=== PATIENT | male | born 1955 | race Caucasian/White ===

== ENCOUNTER 2021-01-11 14:57 | Inpatient (IN) | payer OTHER, MEDICARE ==
[2021-01-11] MEDS ORDERED: Ibuprofen 800 MG Tab PO ONE (16:33)
[2021-01-11] MEDS ORDERED: Acetaminophen 500 MG Tab PO ONE (16:33)
[2021-01-11] MEDS ORDERED: Ondansetron 4 MG Tab.DIS PO ONE (16:33)
--- NOTE | 2021-01-11 16:33 | EDM.PDOC ---
ED HPI GENERAL MEDICAL PROBLEM - General Chief Complaint: Respiratory Problem Stated Complaint: CHILLS/VOMITTING/TASTE Time Seen by Provider: 01/11/21 16:05 Source of Information: Reports: Patient, RN Notes Reviewed History Limitations: Reports: No Limitations - History of Present Illness INITIAL COMMENTS - FREE TEXT/NARRATIVE: Jemal presents today for complaints of nausea, vomiting, diarrhea, general malaise and body aches since 01/05/2021. He reports he feels weak and run down. he reports loss of sense of taste and smell. He reports decreased appetite. He denies known COVID19 exposure, however he is concerned about being positive. He is not sure of any tick/insect bite exposure. He is retired, lives in [facility]. He report he was immunized for COVID19. - Related Data Allergies Allergy/AdvReac Type Severity Reaction Status Date / Time lisinopril AdvReac Cough Verified 01/11/21 15:21 Home Meds: Home Meds Chlorthalidone 0.5 tab PO DAILY 01/11/21 [History] Finasteride [Proscar] 1 tab PO DAILY 01/11/21 [History] Losartan [Cozaar] 1 tab PO DAILY 01/11/21 [History] Sildenafil Citrate [Viagra] 1 tab PO Q12HR PRN 01/11/21 [History] amLODIPine Besylate [Amlodipine Besylate] 1 tab PO DAILY 01/11/21 [History] Past Medical History Cardiovascular History: Reports: Hypertension Social & Family History - Tobacco Use Tobacco Use Status *Q: Never Tobacco User ED ROS GENERAL - Review of Systems Review Of Systems: See Below Constitutional: Reports: Chills, Malaise, Weakness, Fatigue, Decreased Appetite. Denies: Fever, Night Sweats, Diaphoresis, Weight Loss HEENT: Reports: Rhinitis, Other (watery and red eyes). Denies: Dental Pain, Ear Discharge, Ear Pain, Eye Discharge, Eye Pain, Hearing Loss, Nosebleed, Nose Pain, Throat Pain, Throat Swelling, Vertigo, Vision Change Respiratory: Reports: Cough. Denies: Shortness of Breath, Wheezing, Pleuritic Chest Pain, Sputum, Hemoptysis Cardiovascular: Reports: No Symptoms Endocrine: Reports: No Symptoms GI/Abdominal: Reports: Diarrhea, Decreased Appetite, Nausea, Vomiting. Denies: Abdominal Pain, Black Stool, Bloody Stool, Constipation, Difficulty Swallowing, Distension, Melena : Reports: No Symptoms Musculoskeletal: Reports: Other (body aches) Skin: Reports: No Symptoms Neurological: Reports: No Symptoms Psychiatric: Reports: No Symptoms Hematologic/Lymphatic: Reports: No Symptoms Immunologic: Reports: No Symptoms ED EXAM, GENERAL - Physical Exam Exam: See Below Exam Limited By: No Limitations General Appearance: Alert, WD/WN, Mild Distress Eye Exam: Bilateral Eye: Conjunctival Injection, PERRL Ears: Normal External Exam, Normal Canal, Hearing Grossly Normal, Normal TMs Ear Exam: Bilateral Ear: TM normal Nose: Normal Mucosa, Clear Rhinorrhea. No: No Blood, Nasal Tenderness, Nasal Deformity, Nasal Swelling, Nasal Flaring Throat/Mouth: Normal Inspection, Normal Lips, Normal Teeth, Normal Gums, Normal Oropharynx, Normal Voice, No Airway Compromise Head: Atraumatic, Normocephalic Neck: Normal Inspection, Supple, Non-Tender, Full Range of Motion. No: Lymphadenopathy (R), Lymphadenopathy (L) Respiratory/Chest: No Respiratory Distress, Lungs Clear, Normal Breath Sounds, No Accessory Muscle Use, Chest Non-Tender. No: Crackles, Rales, Rhonchi, Wheezing, Stridor, Retractions Cardiovascular: Normal Peripheral Pulses, Regular Rate, Rhythm, No Edema, No Gallop, No Murmur, No Rub Peripheral Pulses: 4+: Radial (L), Radial (R), Dorsalis Pedis (L), Dorsalis Pedis (R) GI/Abdominal: Normal Bowel Sounds, Soft, Non-Tender, No Organomegaly, No Distention, No Mass. No: Guarding, Rigid, Rebound, Tender (Male) Exam: Deferred Rectal (Males) Exam: Deferred Back Exam: Normal Inspection, Full Range of Motion. No: CVA Tenderness (R), CVA Tenderness (L) Extremities: Normal Inspection, Normal Range of Motion, No Pedal Edema, Normal Capillary Refill Neurological: Alert, Oriented, CN II-XII Intact, Normal Cognition, Normal Gait, Normal Reflexes, No Motor/Sensory Deficits Psychiatric: Normal Affect, Normal Mood Skin Exam: Intact, No Rash, Diaphoretic, Increased Warmth Lymphatic: No Adenopathy Course - Vital Signs Last Recorded V/S: Last Vital Signs Temp 35.5 C L 01/11/21 22:44 Pulse 79 01/11/21 22:44 Resp 16 01/11/21 22:44 BP 99/49 L 01/11/21 22:44 Pulse Ox 99 01/11/21 22:44 - Orders/Labs/Meds Orders: Active Orders 24 hr Category Date Time Status Chest 2V [CR] Stat Exams 01/11/21 17:34 Taken CULTURE BLOOD [BC] Urgent Lab 01/11/21 17:34 Received CULTURE BLOOD [BC] Urgent Lab 01/11/21 17:50 Received Blood Culture x2 Reflex Set [OM.PC] Urgent Oth 01/11/21 17:34 Ordered Medication Orders Acetaminophen (Acetaminophen 325 Mg Tab) 650 mg PO Q4H PRN PRN Reason: Pain (Mild 1-3)/fever Albuterol (Albuterol 0.083% 2.5 Mg/3 Ml Neb Soln) 2.5 mg NEB Q4H PRN PRN Reason: Shortness Of Breath/wheezing Amlodipine Besylate (Amlodipine 5 Mg Tab) 5 mg PO DAILY NANO Finasteride (Finasteride 5 Mg Tab) 5 mg PO DAILY [facility] Doxycycline Hyclate 100 mg/ (Sodium Chloride) 100 mls @ 100 mls/hr IV Q12H NANO Lactated Ringer's (Ringers, Lactated) 1,000 mls @ 125 mls/hr IV ASDIRECTED NANO Last Admin: 01/11/21 21:28 Dose: 125 mls/hr Documented by: JEAN CLAUDE Losartan Potassium (Losartan 50 Mg Tab) 100 mg PO DAILY NANO Ondansetron HCl (Ondansetron 4 Mg/2 Ml Sdv) 4 mg IV Q4H PRN PRN Reason: Nausea/Vomiting Polyethylene Glycol (Polyethylene Glycol 3350 Powder 17 Gm Packet) 17 gm PO DAILY PRN PRN Reason: Constipation Sodium Chloride (Sodium Chloride 0.9% 10 Ml Syringe) 10 ml FLUSH ASDIRECTED PRN PRN Reason: Keep Vein Open Labs: Laboratory Tests 01/11/21 01/11/21 01/11/21 Range/Units 00:08 16:23 16:45 WBC 2.9 L (4.5-11.0) K/uL RBC 4.79 (4.30-5.90) M/uL Hgb 13.7 (12.0-15.0) g/dL Hct 38.9 L (40.0-54.0) % MCV 81 (80-98) fL MCH 29 (27-31) pg MCHC 35 (32-36) % Plt Count 53 L (150-400) K/uL Neut % (Auto) 79.3 H (36-66) % Lymph % (Auto) 11.0 L (24-44) % [place] % (Auto) 9.0 H (2-6) % Eos % (Auto) 0.0 L (2-4) % Baso % (Auto) 0.7 (0-1) % Sodium (140-148) mmol/L Potassium (3.6-5.2) mmol/L Chloride (100-108) mmol/L Carbon Dioxide (21-32) mmol/L Anion Gap (5.0-14.0) mmol/L BUN (7-18) mg/dL Creatinine (0.8-1.3) mg/dL Est Cr Clr Drug Dosing mL/min Estimated GFR (MDRD) (>60) Glucose (74-106) mg/dL Lactic Acid 1.7 (0.4-2.0) mmol/L Calcium (8.5-10.1) mg/dL Total Bilirubin (0.2-1.0) mg/dL AST (15-37) U/L ALT (12-78) U/L Alkaline Phosphatase (46-116) U/L Total Protein (6.4-8.2) g/dL Albumin (3.4-5.0) g/dL Globulin (2.3-3.5) g/dL Albumin/Globulin Ratio (1.2-2.2) SARS-CoV-2 RNA (TARI) Negative (NEGATIVE) 01/11/21 Range/Units 16:45 WBC (4.5-11.0) K/uL RBC (4.30-5.90) M/uL Hgb (12.0-15.0) g/dL Hct (40.0-54.0) % MCV (80-98) fL MCH (27-31) pg MCHC (32-36) % Plt Count (150-400) K/uL Neut % (Auto) (36-66) % Lymph % (Auto) (24-44) % [place] % (Auto) (2-6) % Eos % (Auto) (2-4) % Baso % (Auto) (0-1) % Sodium 132 L (140-148) mmol/L Potassium 3.0 L (3.6-5.2) mmol/L Chloride 93 L (100-108) mmol/L Carbon Dioxide 25 (21-32) mmol/L Anion Gap 17.0 H (5.0-14.0) mmol/L BUN 46 H (7-18) mg/dL Creatinine 2.3 H (0.8-1.3) mg/dL Est Cr Clr Drug Dosing 31.79 mL/min Estimated GFR (MDRD) 29 L (>60) Glucose 144 H (74-106) mg/dL Lactic Acid (0.4-2.0) mmol/L Calcium 8.1 L (8.5-10.1) mg/dL Total Bilirubin 0.9 (0.2-1.0) mg/dL AST 108 H (15-37) U/L ALT 67 (12-78) U/L Alkaline Phosphatase 52 (46-116) U/L Total Protein 6.5 (6.4-8.2) g/dL Albumin 2.9 L (3.4-5.0) g/dL Globulin 3.6 H (2.3-3.5) g/dL Albumin/Globulin Ratio 0.8 L (1.2-2.2) SARS-CoV-2 RNA (TARI) (NEGATIVE) Noted leukopenia, neutrophilia, thrombocytopenia, hypokalemia, EDGARDO, hyponatremia, discussed with Dr. Moser, we will treat patient for anaplasmosis. IV normal saline 1L bolus, doxycycline 100mg IV. Patient will be admitted per Dr. Moser. Meds: Medications Generic Name Dose Route Start Last Admin Trade Name Freq PRN Reason Stop Dose Admin Acetaminophen 650 mg 01/11/21 19:47 Acetaminophen 325 Mg Tab PO Q4H PRN Pain (Mild 1-3)/fever Albuterol 2.5 mg 01/11/21 19:47 Albuterol 0.083% 2.5 Mg/3 Ml Neb Soln NEB Q4H PRN Shortness Of Breath/wheezing Amlodipine Besylate 5 mg 01/12/21 09:00 Amlodipine 5 Mg Tab PO DAILY NANO Finasteride 5 mg 01/12/21 09:00 Finasteride 5 Mg Tab PO DAILY NANO Doxycycline Hyclate 100 mg/ 100 mls @ 100 mls/hr 01/12/21 09:00 Sodium Chloride IV Q12H NANO Lactated Ringer's 1,000 mls @ 125 mls/hr 01/11/21 19:47 01/11/21 21:28 Ringers, Lactated IV 125 mls/hr ASDIRECTED NANO Administration Losartan Potassium 100 mg 01/12/21 09:00 Losartan 50 Mg Tab PO DAILY NANO Ondansetron HCl 4 mg 01/11/21 19:47 Ondansetron 4 Mg/2 Ml Sdv IV Q4H PRN Nausea/Vomiting Polyethylene Glycol 17 gm 01/11/21 19:47 Polyethylene Glycol 3350 Powder 17 Gm Packet PO DAILY PRN Constipation Sodium Chloride 10 ml 01/11/21 19:47 Sodium Chloride 0.9% 10 Ml Syringe FLUSH ASDIRECTED PRN Keep Vein Open Discontinued Medications Generic Name Dose Route Start Last Admin Trade Name Freq PRN Reason Stop Dose Admin Acetaminophen 1,000 mg 01/11/21 16:33 01/11/21 16:51 Acetaminophen 500 Mg Tab PO 01/11/21 16:34 1,000 mg ONETIME ONE Administration Doxycycline Hyclate 100 mg/ 100 mls @ 100 mls/hr 01/11/21 17:34 01/11/21 18:20 Sodium Chloride IV 01/11/21 18:33 100 mls/hr ONETIME ONE Administration Sodium Chloride 1,000 mls @ 999 mls/hr 01/11/21 17:35 01/11/21 18:19 Normal Saline IV 01/11/21 18:35 999 mls/hr .BOLUS ONE Administration Lactated Ringer's 1,000 mls @ 999 mls/hr 01/11/21 18:35 01/11/21 20:28 Ringers, Lactated IV 01/11/21 19:36 999 mls/hr ASDIRECTED NANO Administration Ibuprofen 800 mg 01/11/21 16:33 01/11/21 16:51 Ibuprofen 800 Mg Tab PO 01/11/21 16:34 800 mg ONETIME ONE Administration Ondansetron HCl 4 mg 01/11/21 16:33 01/11/21 16:51 Ondansetron 4 Mg Tab.Dis PO 01/11/21 16:34 4 mg ONETIME ONE Administration Potassium Chloride 40 meq 01/11/21 18:06 01/11/21 19:34 Potassium Chloride 20 Meq Tab.Er PO 01/11/21 18:07 40 meq ONETIME ONE Administration Potassium Chloride 40 meq 01/11/21 22:00 01/11/21 22:45 Potassium Chloride 20 Meq Tab.Er PO 01/11/21 22:01 40 meq ONETIME ONE Administration Sodium Chloride 10 ml 01/11/21 17:34 Sodium Chloride 0.9% 10 Ml Syringe FLUSH ASDIRECTED PRN Keep Vein Open Patient in agreement with plan. - Radiology Interpretation Free Text/Narrative:: Chest x-ray wet read, reviewed, no acute findings noted. - Re-Assessments/Exams Free Text/Narrative Re-Assessment/Exam: 01/11/21 18:22 Patient reports he is doing okay, denies any worsening of symptoms. Alert and o riented x 3. Departure - Departure Time of Disposition: 19:00 Disposition: DC/Tfer to [facility] Condition: Fair Clinical Impression: EDGARDO (acute kidney injury), Hypokalemia, Probable sepsis - Discharge Information Sepsis Event Note (ED) - Evaluation Sepsis Screening Result: No Definite Risk - Focused Exam Vital Signs: Vital Signs Temp Pulse Resp BP Pulse Ox 01/11/21 17:36 107 H 114/72 96 01/11/21 17:03 108 H 117/75 96 01/11/21 16:08 106 H 119/76 96 01/11/21 15:34 36.8 C 113 H 16 132/85 100 01/11/21 15:12 36.8 C 113 H 16 132/85 132 H - My Orders Last 24 Hours: My Active Orders 01/11/21 17:34 Chest 2V [CR] Stat CULTURE BLOOD [BC] Urgent Blood Culture x2 Reflex Set [OM.PC] Urgent 01/11/21 17:50 CULTURE BLOOD [BC] Urgent - Assessment/Plan Last 24 Hours: My Active Orders 01/11/21 17:34 Chest 2V [CR] Stat CULTURE BLOOD [BC] Urgent Blood Culture x2 Reflex Set [OM.PC] Urgent 01/11/21 17:50 CULTURE BLOOD [BC] Urgent Assessment:: Inpatient admission for hypokalemia, EDGARDO, probable anaplasmosis. Plan: Patient admitted per Dr. Moser.
[2021-01-11] MEDS ORDERED: Doxycycline 100 MG in Sodium Chloride 0.9% 100 ML IV ONE (17:34)
[2021-01-11] MEDS ORDERED: Sodium Chloride 0.9% 10 ML Syringe FLUSH PRN ×2 (17:34→19:47)
[2021-01-11] MEDS ORDERED: Sodium Chloride 0.9% 1,000 ML IV ONE (17:35)
[2021-01-11] MEDS ORDERED: Potassium Chloride 20 MEQ Tab.ER PO ONE ×2 (18:06→22:00)
--- NOTE | 2021-01-11 18:18 | PCM.HP.2 ---
H&P History of Present Illness - General Date of Service: 01/11/21 Admit Problem/Dx: Admission Diagnosis/Problem Admission Diagnosis/Problem Human anaplasmosis Source of Information: Patient, Provider, RN Notes Reviewed History Limitations: Reports: No Limitations - History of Present Illness Initial Comments - Free Text/Narative: Mr. Stout is a 65-year-old gentleman who was admitted through the emergency department with fever, myalgias, headache, and weakness, secondary to probable anaplasmosis. He has not felt well over the past 6 days and has noted progressive symptoms during that period of time. [place]. He denies any memorable tick bites over the past few weeks. Because of progressive symptoms he presented to the emergency department today. Testing for COVID-19 is negative. White blood cell count was low as was his platelet count, elevation of transaminase levels was noted. He does have a history of hypertension and reports also a history of some chronic kidney disease. [place] and is unsure of his baseline creatinine level. On evaluation in the emergency department his creatinine is elevated at 2.3 with a GFR of 29. - Related Data Allergies/Adverse Reactions: Allergies Allergy/AdvReac Type Severity Reaction Status Date / Time lisinopril AdvReac Cough Verified 01/11/21 15:21 Home Medications: Home Meds Chlorthalidone 0.5 tab PO DAILY 01/11/21 [History] Finasteride [Proscar] 1 tab PO DAILY 01/11/21 [History] Losartan [Cozaar] 1 tab PO DAILY 01/11/21 [History] Sildenafil Citrate [Viagra] 1 tab PO Q12HR PRN 01/11/21 [History] amLODIPine Besylate [Amlodipine Besylate] 1 tab PO DAILY 01/11/21 [History] Past Medical History Cardiovascular History: Reports: Hypertension Social & Family History - Tobacco Use Tobacco Use Status *Q: Never Tobacco User H&P Review of Systems - Review of Systems: Review Of Systems: See Below General: Reports: Fever, Chills, Malaise, Weakness, Fatigue, Diaphoresis HEENT: Reports: Headaches. Denies: Ear Pain, Eye Pain, Rhinitis, Sore Throat, Visual Changes Pulmonary: Reports: Cough. Denies: Shortness of Breath, Wheezing, Pleuritic Chest Pain, Sputum, Hemoptysis Cardiovascular: Reports: No Symptoms Gastrointestinal: Reports: Diarrhea, Nausea. Denies: Constipation, Difficulty Swallowing, Distension, Hematemesis, Hematochezia, Melena, Vomiting Genitourinary: Reports: No Symptoms Musculoskeletal: Reports: Muscle Pain, Muscle Stiffness Skin: Reports: No Symptoms Psychiatric: Reports: No Symptoms Neurological: Reports: Headache. Denies: Confusion, Dizziness, Numbness, Paresthesia, Pre-Existing Deficit, Trouble Speaking, Difficulty Walking, Weakness Hematologic/Lymphatic: Reports: No Symptoms Immunologic: Reports: No Symptoms Exam - Exam Exam: See Below - Vital Signs Vital Signs: Last Vital Signs Temp 98.2 F 01/11/21 15:34 Pulse 107 H 01/11/21 17:36 Resp 16 01/11/21 15:34 BP 114/72 01/11/21 17:36 Pulse Ox 96 01/11/21 17:36 Weight: 159 lb - Exam Quality Assessment: DVT Prophylaxis General: Alert, Oriented, Cooperative, Moderate Distress HEENT: Conjunctiva Clear, Hearing Intact, Normal Nasal Septum, Posterior Pharynx Clear, Pupils Equal. No: Mucosa Moist & [place] Neck: Supple, Trachea Midline, +2 Carotid Pulse wo Bruit Lungs: Clear to Auscultation, Normal Respiratory Effort Cardiovascular: Regular Rate, Regular Rhythm, Normal S1, Normal S2. No: Systolic Murmur, Diastolic Murmur GI/Abdominal Exam: Soft, Non-Tender, No Organomegaly, No Distention Back Exam: Normal Inspection, Full Range of Motion Extremities: Non-Tender, No Pedal Edema Skin: Warm, Dry, Intact Neurological: Cranial Nerves Intact, Strength Equal Bilateral, Normal Speech, Normal Tone, Sensation Intact. No: Focal Deficit Neuro Extensive - Mental Status: Alert, Oriented x3, Normal Mood/Affect, Normal Cognition, Memory Intact - Patient Data Lab Results Last 24 hrs: Laboratory Results - last 24 hr 01/11/21 01/11/21 01/11/21 Range/Units 16:23 16:45 16:45 WBC 2.9 L (4.5-11.0) K/uL RBC 4.79 (4.30-5.90) M/uL Hgb 13.7 (12.0-15.0) g/dL Hct 38.9 L (40.0-54.0) % MCV 81 (80-98) fL MCH 29 (27-31) pg MCHC 35 (32-36) % Plt Count 53 L (150-400) K/uL Neut % (Auto) 79.3 H (36-66) % Lymph % (Auto) 11.0 L (24-44) % [place] % (Auto) 9.0 H (2-6) % Eos % (Auto) 0.0 L (2-4) % Baso % (Auto) 0.7 (0-1) % Sodium 132 L (140-148) mmol/L Potassium 3.0 L (3.6-5.2) mmol/L Chloride 93 L (100-108) mmol/L Carbon Dioxide 25 (21-32) mmol/L Anion Gap 17.0 H (5.0-14.0) mmol/L BUN 46 H (7-18) mg/dL Creatinine 2.3 H (0.8-1.3) mg/dL Est Cr Clr Drug Dosing 31.79 mL/min Estimated GFR (MDRD) 29 L (>60) Glucose 144 H (74-106) mg/dL Calcium 8.1 L (8.5-10.1) mg/dL Total Bilirubin 0.9 (0.2-1.0) mg/dL AST 108 H (15-37) U/L ALT 67 (12-78) U/L Alkaline Phosphatase 52 (46-116) U/L Total Protein 6.5 (6.4-8.2) g/dL Albumin 2.9 L (3.4-5.0) g/dL Globulin 3.6 H (2.3-3.5) g/dL Albumin/Globulin Ratio 0.8 L (1.2-2.2) SARS-CoV-2 RNA (TARI) Negative (NEGATIVE) Result Diagrams: 01/11/21 16:45 01/11/21 16:45 Sepsis Event Note - Evaluation Sepsis Screening Result: No Definite Risk - Focused Exam Vital Signs: Vital Signs Temp Pulse Resp BP Pulse Ox 01/11/21 17:36 107 H 114/72 96 01/11/21 17:03 108 H 117/75 96 01/11/21 16:08 106 H 119/76 96 01/11/21 15:34 98.2 F 113 H 16 132/85 100 01/11/21 15:12 98.2 F 113 H 16 132/85 132 H *Q Meaningful Use (ADM) - VTE Risk Assess *Q Each Risk Factor Represents 1 Point: None Total Score 1 Point Risk Factors: 0 Each Risk Factor Represents 2 Points: Age 60 - 74 Years Total Score 2 Point Risk Factors: 2 Each Risk Factor Represents 3 Points: None Total Score 3 Point Risk Factors: 0 Each Risk Factor Represents 5 Points: None Total Score 5 Point Risk Factors: 0 Venous Thromboembolism Risk Factor Score *Q: 2 Problem List Initiated/Reviewed/Updated: Yes Orders Last 24hrs: Active Orders 24 hr Category Date Time Status Patient Status Manage Transfer [TRANSFER] Routine ADT 01/11/21 18:07 Ordered Chest 2V [CR] Stat Exams 01/11/21 17:34 Taken CULTURE BLOOD [BC] Urgent Lab 01/11/21 17:34 Received CULTURE BLOOD [BC] Urgent Lab 01/11/21 17:50 Received UA W/MICROSCOPIC [URIN] Stat Lab 01/11/21 17:35 Ordered Doxycycline [Vibramycin] 100 mg Med 01/11/21 17:34 Active Sodium Chloride 0.9% [Normal Saline] 100 ml IV ONETIME Lactated Ringers [Ringers, Lactated] 1,000 ml Med 01/11/21 18:35 Ordered IV ASDIRECTED Potassium Chloride [Klor-Con M20] Med 01/11/21 18:06 Once 40 meq PO ONETIME ONE Sodium Chloride 0.9% [Normal Saline] 1,000 ml Med 01/11/21 17:35 Active IV .BOLUS Sodium Chloride 0.9% [Saline Flush] Med 01/11/21 17:34 Active 10 ml FLUSH ASDIRECTED PRN Blood Culture x2 Reflex Set [OM.PC] Urgent Oth 01/11/21 17:34 Ordered Saline Lock Insert [OM.PC] Routine Oth 01/11/21 17:34 Ordered Resuscitation Status Routine Resus Stat 01/11/21 18:10 Ordered Medication Orders Doxycycline Hyclate 100 mg/ (Sodium Chloride) 100 mls @ 100 mls/hr IV ONETIME ONE Stop: 01/11/21 18:33 Sodium Chloride (Normal Saline) 1,000 mls @ 999 mls/hr IV .BOLUS ONE Stop: 01/11/21 18:35 Lactated Ringer's (Ringers, Lactated) 1,000 mls @ 999 mls/hr IV ASDIRECTED NANO Stop: 01/11/21 19:36 Potassium Chloride (Potassium Chloride 20 Meq Tab.Er) 40 meq PO ONETIME ONE Stop: 01/11/21 18:07 Sodium Chloride (Sodium Chloride 0.9% 10 Ml Syringe) 10 ml FLUSH ASDIRECTED PRN PRN Reason: Keep Vein Open Assessment/Plan Comment:: ASSESSMENT AND PLAN 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 He does not recall recent tick bite but he is out in the [place]. No evidence of other obvious source of infection identified thus far, testing for COVID-19 is negative -Blood cultures pending -Serology for anaplasmosis and Lyme disease pending -Lactic acid level pending -IV fluids per sepsis protocol -Doxycycline 100 mg IV every 12 hours -Continue to monitor closely for evidence of other underlying infection ACUTE KIDNEY INJURY-he is seen for primary care at [place], labs currently not available. He does give a history of chronic kidney disease but is unsure of recent creatinine level. Acute injury likely secondary to dehydration with intravascular volume depletion. -Obtain recent laboratory tests from [place] -IV fluids as above -Closely monitor rate urine output and renal function HISTORY OF HYPERTENSION -Continue outpatient medications -Monitor blood pressure during hospital stay HYPOKALEMIA -Oral potassium replacement -Recheck potassium level in a.m. MAINTENANCE ISSUES -DVT prophylaxis; SCUDs, hold on anticoagulation because of thrombocytopenia -GI prophylaxis; not indicated -Luo catheter; not indicated -Nutrition; 2 g sodium diet -Nicotine dependence; not required CODE STATUS-FULL CODE ADMISSION STATUS-patient will be admitted to inpatient status, expect at least a 2 night hospital stay for evaluation and management of problems as outlined above. At the time of this admission I do not reasonably expected evaluation and management of this problem will require more than a 96 hour hospital stay. DISPOSITION-anticipate discharge to home after the hospital stay. PRIMARY CARE PROVIDER-[facility] - Mortality Measure Prognosis:: Good
[2021-01-11] MEDS ORDERED: Lactated Ringers 1,000 ML IV SCH (18:35)
[2021-01-11] MEDS ORDERED: Albuterol 0.083% 2.5 MG/3 ML Neb Soln NEB PRN (19:47)
[2021-01-11] MEDS ORDERED: Polyethylene Glycol 3350 Powder 17 GM Packet PO PRN (19:47)
[2021-01-11] MEDS ORDERED: Acetaminophen 325 MG Tab PO PRN (19:47)
[2021-01-11] MEDS ORDERED: Ondansetron 4 MG/2 ML SDV IV PRN (19:47)
[2021-01-11] MEDS: Lactated Ringers 1,000 ML IV SCH (21:28)
[2021-01-12] MEDS: Lactated Ringers 1,000 ML IV SCH (05:05)
[2021-01-12] MEDS: Losartan 50 MG Tab PO SCH (08:06)
[2021-01-12] MEDS: amLODIPine 5 MG Tab PO SCH (08:07)
[2021-01-12] MEDS: Finasteride 5 MG Tab PO SCH (08:13)
[2021-01-12] MEDS ORDERED: Potassium Chloride 20 MEQ Tab.ER PO ONE ×2 (08:15→17:00)
[2021-01-12] MEDS: Doxycycline 100 MG in Sodium Chloride 0.9% 100 ML IV SCH ×2 (09:04→21:04)
[2021-01-12] MEDS ORDERED: Atropine/Diphenoxylate 0.025-2.5 MG Tab PO PRN (11:02)
--- NOTE | 2021-01-12 11:09 | PCM.PN ---
- General Info Date of Service: 01/12/21 Subjective Update: Mr. Stout stable since admission yesterday with no further temperature elevations. Tachycardia has resolved and other vital signs have been stable. Headache myalgias and cough all seem to be somewhat improved. Creatinine is increased slightly from admission, white blood cell count and platelets remain low. Functional Status: Reports: Urinating - Review of Systems General: Reports: Weakness, Fatigue. Denies: Fever, Chills Pulmonary: Reports: No Symptoms Cardiovascular: Reports: No Symptoms Gastrointestinal: Reports: Diarrhea. Denies: Abdominal Pain, Constipation, Difficulty Swallowing, Hematochezia, Melena, Nausea, Vomiting Genitourinary: Reports: No Symptoms - Patient Data Vitals - Most Recent: Last Vital Signs Temp 95.8 F L 01/12/21 07:54 Pulse 80 01/12/21 07:54 Resp 16 01/12/21 07:54 BP 111/72 01/12/21 07:54 Pulse Ox 100 01/12/21 07:54 Weight - Most Recent: 157 lb 3.2 oz I&O - Last 24 Hours: Intake & Output 01/11/21 01/12/21 01/12/21 22:59 06:59 14:59 Output Total 300 150 Balance -300 -150 Lab Results Last 24 Hours: Laboratory Results - last 24 hr 01/11/21 01/11/21 01/11/21 Range/Units 00:08 16:23 16:45 WBC 2.9 L (4.5-11.0) K/uL RBC 4.79 (4.30-5.90) M/uL Hgb 13.7 (12.0-15.0) g/dL Hct 38.9 L (40.0-54.0) % MCV 81 (80-98) fL MCH 29 (27-31) pg MCHC 35 (32-36) % Plt Count 53 L (150-400) K/uL Neut % (Auto) 79.3 H (36-66) % Lymph % (Auto) 11.0 L (24-44) % [place] % (Auto) 9.0 H (2-6) % Eos % (Auto) 0.0 L (2-4) % Baso % (Auto) 0.7 (0-1) % Sodium (140-148) mmol/L Potassium (3.6-5.2) mmol/L Chloride (100-108) mmol/L Carbon Dioxide (21-32) mmol/L Anion Gap (5.0-14.0) mmol/L BUN (7-18) mg/dL Creatinine (0.8-1.3) mg/dL Est Cr Clr Drug Dosing mL/min Estimated GFR (MDRD) (>60) Glucose (74-106) mg/dL Lactic Acid 1.7 (0.4-2.0) mmol/L Calcium (8.5-10.1) mg/dL Magnesium (1.8-2.4) mg/dL Total Bilirubin (0.2-1.0) mg/dL AST (15-37) U/L ALT (12-78) U/L Alkaline Phosphatase (46-116) U/L Total Protein (6.4-8.2) g/dL Albumin (3.4-5.0) g/dL Globulin (2.3-3.5) g/dL Albumin/Globulin Ratio (1.2-2.2) Lyme Disease IgG Ab (Negative) Lyme Disease IgM Ab (Negative) SARS-CoV-2 RNA (TARI) Negative (NEGATIVE) 01/11/21 01/11/21 01/11/21 Range/Units 16:45 19:51 19:55 WBC (4.5-11.0) K/uL RBC (4.30-5.90) M/uL Hgb (12.0-15.0) g/dL Hct (40.0-54.0) % MCV (80-98) fL MCH (27-31) pg MCHC (32-36) % Plt Count (150-400) K/uL Neut % (Auto) (36-66) % Lymph % (Auto) (24-44) % [place] % (Auto) (2-6) % Eos % (Auto) (2-4) % Baso % (Auto) (0-1) % Sodium 132 L (140-148) mmol/L Potassium 3.0 L (3.6-5.2) mmol/L Chloride 93 L (100-108) mmol/L Carbon Dioxide 25 (21-32) mmol/L Anion Gap 17.0 H (5.0-14.0) mmol/L BUN 46 H (7-18) mg/dL Creatinine 2.3 H (0.8-1.3) mg/dL Est Cr Clr Drug Dosing 31.79 mL/min Estimated GFR (MDRD) 29 L (>60) Glucose 144 H (74-106) mg/dL Lactic Acid 2.2 H (0.4-2.0) mmol/L Calcium 8.1 L (8.5-10.1) mg/dL Magnesium (1.8-2.4) mg/dL Total Bilirubin 0.9 (0.2-1.0) mg/dL AST 108 H (15-37) U/L ALT 67 (12-78) U/L Alkaline Phosphatase 52 (46-116) U/L Total Protein 6.5 (6.4-8.2) g/dL Albumin 2.9 L (3.4-5.0) g/dL Globulin 3.6 H (2.3-3.5) g/dL Albumin/Globulin Ratio 0.8 L (1.2-2.2) Lyme Disease IgG Ab Negative (Negative) Lyme Disease IgM Ab Negative (Negative) SARS-CoV-2 RNA (TARI) (NEGATIVE) 01/12/21 01/12/21 Range/Units 04:05 04:05 WBC 3.3 L (4.5-11.0) K/uL RBC 4.66 (4.30-5.90) M/uL Hgb 13.6 (12.0-15.0) g/dL Hct 38.6 L (40.0-54.0) % MCV 83 (80-98) fL MCH 29 (27-31) pg MCHC 35 (32-36) % Plt Count 48 L (150-400) K/uL Neut % (Auto) 66.9 H (36-66) % Lymph % (Auto) 14.6 L (24-44) % [place] % (Auto) 14.9 H (2-6) % Eos % (Auto) 0.3 L (2-4) % Baso % (Auto) 3.3 H (0-1) % Sodium 138 L (140-148) mmol/L Potassium 3.5 L (3.6-5.2) mmol/L Chloride 100 (100-108) mmol/L Carbon Dioxide 31 (21-32) mmol/L Anion Gap 10.5 (5.0-14.0) mmol/L BUN 51 H (7-18) mg/dL Creatinine 2.8 H (0.8-1.3) mg/dL Est Cr Clr Drug Dosing 25.82 mL/min Estimated GFR (MDRD) 23 L (>60) Glucose 127 H (74-106) mg/dL Lactic Acid (0.4-2.0) mmol/L Calcium 7.9 L (8.5-10.1) mg/dL Magnesium 2.3 (1.8-2.4) mg/dL Total Bilirubin 0.6 (0.2-1.0) mg/dL AST 87 H (15-37) U/L ALT 61 (12-78) U/L Alkaline Phosphatase 46 (46-116) U/L Total Protein 5.7 L (6.4-8.2) g/dL Albumin 2.4 L (3.4-5.0) g/dL Globulin 3.3 (2.3-3.5) g/dL Albumin/Globulin Ratio 0.7 L (1.2-2.2) Lyme Disease IgG Ab (Negative) Lyme Disease IgM Ab (Negative) SARS-CoV-2 RNA (TARI) (NEGATIVE) Med Orders - Current: Current Medications Acetaminophen (Acetaminophen 325 Mg Tab) 650 mg PO Q4H PRN PRN Reason: Pain (Mild 1-3)/fever Albuterol (Albuterol 0.083% 2.5 Mg/3 Ml Neb Soln) 2.5 mg NEB Q4H PRN PRN Reason: Shortness Of Breath/wheezing Amlodipine Besylate (Amlodipine 5 Mg Tab) 5 mg PO DAILY [facility] Last Admin: 01/12/21 08:07 Dose: Not Given Documented by: Diphenoxylate HCl/Atropine (Atropine/Diphenoxylate 0.025-2.5 Mg Tab) 1 tab PO QID PRN PRN Reason: Diarrhea Finasteride (Finasteride 5 Mg Tab) 5 mg PO DAILY [facility] Last Admin: 01/12/21 08:13 Dose: 5 mg Documented by: Doxycycline Hyclate 100 mg/ (Sodium Chloride) 100 mls @ 100 mls/hr IV Q12H [facility] Last Admin: 01/12/21 09:04 Dose: 100 mls/hr Documented by: Lactated Ringer's (Ringers, Lactated) 1,000 mls @ 60 mls/hr IV ASDIRECTED [facility] Losartan Potassium (Losartan 50 Mg Tab) 100 mg PO DAILY [facility] Last Admin: 01/12/21 08:06 Dose: Not Given Documented by: Ondansetron HCl (Ondansetron 4 Mg/2 Ml Sdv) 4 mg IV Q4H PRN PRN Reason: Nausea/Vomiting Polyethylene Glycol (Polyethylene Glycol 3350 Powder 17 Gm Packet) 17 gm PO ROSANNA LY PRN PRN Reason: Constipation Potassium Chloride (Potassium Chloride 20 Meq Tab.Er) 40 meq PO ONETIME ONE Stop: 01/12/21 17:01 Sodium Chloride (Sodium Chloride 0.9% 10 Ml Syringe) 10 ml FLUSH ASDIRECTED PRN PRN Reason: Keep Vein Open Discontinued Medications Acetaminophen (Acetaminophen 500 Mg Tab) 1,000 mg PO ONETIME ONE Stop: 01/11/21 16:34 Last Admin: 01/11/21 16:51 Dose: 1,000 mg Documented by: Doxycycline Hyclate 100 mg/ (Sodium Chloride) 100 mls @ 100 mls/hr IV ONETIME ONE Stop: 01/11/21 18:33 Last Admin: 01/11/21 18:20 Dose: 100 mls/hr Documented by: Sodium Chloride (Normal Saline) 1,000 mls @ 999 mls/hr IV .BOLUS ONE Stop: 01/11/21 18:35 Last Admin: 01/11/21 18:19 Dose: 999 mls/hr Documented by: Lactated Ringer's (Ringers, Lactated) 1,000 mls @ 999 mls/hr IV ASDIRECTED [facility] Stop: 01/11/21 19:36 Last Admin: 01/11/21 20:28 Dose: 999 mls/hr Documented by: Lactated Ringer's (Ringers, Lactated) 1,000 mls @ 125 mls/hr IV ASDIRECTED [facility] Last Admin: 01/12/21 05:05 Dose: 125 mls/hr Documented by: Ibuprofen (Ibuprofen 800 Mg Tab) 800 mg PO ONETIME ONE Stop: 01/11/21 16:34 Last Admin: 01/11/21 16:51 Dose: 800 mg Documented by: Ondansetron HCl (Ondansetron 4 Mg Tab.Dis) 4 mg PO ONETIME ONE Stop: 01/11/21 16:34 Last Admin: 01/11/21 16:51 Dose: 4 mg Documented by: Potassium Chloride (Potassium Chloride 20 Meq Tab.Er) 40 meq PO ONETIME ONE Stop: 01/11/21 18:07 Last Admin: 01/11/21 19:34 Dose: 40 meq Documented by: Potassium Chloride (Potassium Chloride 20 Meq Tab.Er) 40 meq PO ONETIME ONE Stop: 01/11/21 22:01 Last Admin: 01/11/21 22:45 Dose: 40 meq Documented by: Potassium Chloride (Potassium Chloride 20 Meq Tab.Er) 40 meq PO ONETIME ONE Stop: 01/12/21 08:16 Last Admin: 01/12/21 08:11 Dose: 40 meq Documented by: Sodium Chloride (Sodium Chloride 0.9% 10 Ml Syringe) 10 ml FLUSH ASDIRECTED PRN PRN Reason: Keep Vein Open - Exam Quality Assessment: DVT Prophylaxis General: Alert, Oriented, Cooperative, Moderate Distress Lungs: Clear to Auscultation, Normal Respiratory Effort Cardiovascular: Regular Rate, Regular Rhythm, No Murmurs GI/Abdominal Exam: Soft, Non-Tender, No Organomegaly, No Distention Extremities: Non-Tender, No Pedal Edema - Patient Data Lab Results Last 24 hrs: Laboratory Results - last 24 hr 01/11/21 01/11/21 01/11/21 Range/Units 00:08 16:23 16:45 WBC 2.9 L (4.5-11.0) K/uL RBC 4.79 (4.30-5.90) M/uL Hgb 13.7 (12.0-15.0) g/dL Hct 38.9 L (40.0-54.0) % MCV 81 (80-98) fL MCH 29 (27-31) pg MCHC 35 (32-36) % Plt Count 53 L (150-400) K/uL Neut % (Auto) 79.3 H (36-66) % Lymph % (Auto) 11.0 L (24-44) % [place] % (Auto) 9.0 H (2-6) % Eos % (Auto) 0.0 L (2-4) % Baso % (Auto) 0.7 (0-1) % Sodium (140-148) mmol/L Potassium (3.6-5.2) mmol/L Chloride (100-108) mmol/L Carbon Dioxide (21-32) mmol/L Anion Gap (5.0-14.0) mmol/L BUN (7-18) mg/dL Creatinine (0.8-1.3) mg/dL Est Cr Clr Drug Dosing mL/min Estimated GFR (MDRD) (>60) Glucose (74-106) mg/dL Lactic Acid 1.7 (0.4-2.0) mmol/L Calcium (8.5-10.1) mg/dL Magnesium (1.8-2.4) mg/dL Total Bilirubin (0.2-1.0) mg/dL AST (15-37) U/L ALT (12-78) U/L Alkaline Phosphatase (46-116) U/L Total Protein (6.4-8.2) g/dL Albumin (3.4-5.0) g/dL Globulin (2.3-3.5) g/dL Albumin/Globulin Ratio (1.2-2.2) Lyme Disease IgG Ab (Negative) Lyme Disease IgM Ab (Negative) SARS-CoV-2 RNA (TARI) Negative (NEGATIVE) 01/11/21 01/11/21 01/11/21 Range/Units 16:45 19:51 19:55 WBC (4.5-11.0) K/uL RBC (4.30-5.90) M/uL Hgb (12.0-15.0) g/dL Hct (40.0-54.0) % MCV (80-98) fL MCH (27-31) pg MCHC (32-36) % Plt Count (150-400) K/uL Neut % (Auto) (36-66) % Lymph % (Auto) (24-44) % [place] % (Auto) (2-6) % Eos % (Auto) (2-4) % Baso % (Auto) (0-1) % Sodium 132 L (140-148) mmol/L Potassium 3.0 L (3.6-5.2) mmol/L Chloride 93 L (100-108) mmol/L Carbon Dioxide 25 (21-32) mmol/L Anion Gap 17.0 H (5.0-14.0) mmol/L BUN 46 H (7-18) mg/dL Creatinine 2.3 H (0.8-1.3) mg/dL Est Cr Clr Drug Dosing 31.79 mL/min Estimated GFR (MDRD) 29 L (>60) Glucose 144 H (74-106) mg/dL Lactic Acid 2.2 H (0.4-2.0) mmol/L Calcium 8.1 L (8.5-10.1) mg/dL Magnesium (1.8-2.4) mg/dL Total Bilirubin 0.9 (0.2-1.0) mg/dL AST 108 H (15-37) U/L ALT 67 (12-78) U/L Alkaline Phosphatase 52 (46-116) U/L Total Protein 6.5 (6.4-8.2) g/dL Albumin 2.9 L (3.4-5.0) g/dL Globulin 3.6 H (2.3-3.5) g/dL Albumin/Globulin Ratio 0.8 L (1.2-2.2) Lyme Disease IgG Ab Negative (Negative) Lyme Disease IgM Ab Negative (Negative) SARS-CoV-2 RNA (TARI) (NEGATIVE) 01/12/21 01/12/21 Range/Units 04:05 04:05 WBC 3.3 L (4.5-11.0) K/uL RBC 4.66 (4.30-5.90) M/uL Hgb 13.6 (12.0-15.0) g/dL Hct 38.6 L (40.0-54.0) % MCV 83 (80-98) fL MCH 29 (27-31) pg MCHC 35 (32-36) % Plt Count 48 L (150-400) K/uL Neut % (Auto) 66.9 H (36-66) % Lymph % (Auto) 14.6 L (24-44) % [place] % (Auto) 14.9 H (2-6) % Eos % (Auto) 0.3 L (2-4) % Baso % (Auto) 3.3 H (0-1) % Sodium 138 L (140-148) mmol/L Potassium 3.5 L (3.6-5.2) mmol/L Chloride 100 (100-108) mmol/L Carbon Dioxide 31 (21-32) mmol/L Anion Gap 10.5 (5.0-14.0) mmol/L BUN 51 H (7-18) mg/dL Creatinine 2.8 H (0.8-1.3) mg/dL Est Cr Clr Drug Dosing 25.82 mL/min Estimated GFR (MDRD) 23 L (>60) Glucose 127 H (74-106) mg/dL Lactic Acid (0.4-2.0) mmol/L Calcium 7.9 L (8.5-10.1) mg/dL Magnesium 2.3 (1.8-2.4) mg/dL Total Bilirubin 0.6 (0.2-1.0) mg/dL AST 87 H (15-37) U/L ALT 61 (12-78) U/L Alkaline Phosphatase 46 (46-116) U/L Total Protein 5.7 L (6.4-8.2) g/dL Albumin 2.4 L (3.4-5.0) g/dL Globulin 3.3 (2.3-3.5) g/dL Albumin/Globulin Ratio 0.7 L (1.2-2.2) Lyme Disease IgG Ab (Negative) Lyme Disease IgM Ab (Negative) SARS-CoV-2 RNA (TARI) (NEGATIVE) Result Diagrams: 01/12/21 04:05 01/12/21 04:05 Sepsis Event Note - Evaluation Sepsis Screening Result: No Definite Risk - Focused Exam Vital Signs: Vital Signs Temp Pulse Resp BP Pulse Ox 01/12/21 07:54 95.8 F L 80 16 111/72 100 01/12/21 04:31 79 16 95/56 L 98 - Problem List Review Problem List Initiated/Reviewed/Updated: Yes - My Orders Last 24 Hours: My Active Orders 01/11/21 Dinner 2 Gram Sodium Diet [DIET] 01/11/21 18:10 Resuscitation Status Routine 01/11/21 19:47 Acetaminophen [TylenoL] 650 mg PO Q4H PRN Albuterol [Proventil Neb Soln] 2.5 mg NEB Q4H PRN Ondansetron [Zofran] 4 mg IV Q4H PRN Sodium Chloride 0.9% [Saline Flush] 10 ml FLUSH ASDIRECTED PRN polyethylene glycoL 3350 [MiraLAX] 17 gm PO DAILY PRN 01/11/21 19:47 Patient Status [ADT] Routine Ambulate [RC] QID Antiembolic Devices [RC] .Routine Height and Weight [RC] 0500 Intake and Output [RC] QSHIFT Notify Provider Vital Signs [RC] ASDIRECTED Oxygen Therapy [RC] PRN Peripheral IV Care [RC] Q12H RT Aerosol Therapy [RC] ASDIRECTED Up With Assistance [RC] ASDIRECTED Up to Chair [RC] QID Vital Signs [RC] Q4H Peripheral IV Insertion Adult [OM.PC] Routine Sequential Compression Device [OM.PC] Per Unit Routine VTE Pharmacological Contraindications [AST] Per Unit Routine 01/11/21 19:51 HUMAN GRANULOCYTIC CHERISE-HGE Stat 01/12/21 09:00 Doxycycline [Vibramycin] 100 mg Sodium Chloride 0.9% [Normal Saline] 100 ml IV Q12H Finasteride [Proscar] 5 mg PO DAILY Losartan [Cozaar] 100 mg PO DAILY amLODIPine [Norvasc] 5 mg PO DAILY 01/12/21 11:02 Atropine/Diphenoxylate [Lomotil 0.025-2.5 MG] 1 tab PO QID PRN 01/12/21 11:15 Lactated Ringers [Ringers, Lactated] 1,000 ml IV ASDIRECTED 01/12/21 17:00 Potassium Chloride [Klor-Con M20] 40 meq PO ONETIME ONE 01/13/21 05:00 CBC WITH AUTO DIFF [HEME] Timed COMPREHENSIVE METABOLIC PN,CMP [CHEM] Timed - Plan Plan:: ASSESSMENT AND PLAN 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 He does not recall recent tick bite but he is out in the [place] frequently. No evidence of other obvious source of infection identified thus far, testing for COVID-19 is negative -Blood cultures pending -Serology for anaplasmosis and Lyme disease pending -Lactic acid level pending -IV fluids -Doxycycline 100 mg IV every 12 hours -Continue to monitor closely for evidence of other underlying infection ACUTE KIDNEY INJURY-he is seen for primary care at the [facility], labs currently not available. He does give a history of chronic kidney disease but is unsure of recent creatinine level. Acute injury likely secondary to dehydration with intravascular volume depletion. Trending up from admission this morning, urine output has improved with IV fluids. -Obtain recent laboratory tests from [facility] -IV fluids as above -Closely monitor rate urine output and renal function HISTORY OF HYPERTENSION -Continue outpatient medications -Monitor blood pressure during hospital stay HYPOKALEMIA-potassium level still mildly low this morning -Oral potassium replacement -Recheck potassium level in a.m. MAINTENANCE ISSUES -DVT prophylaxis; SCUDs, hold on anticoagulation because of thrombocytopenia -GI prophylaxis; not indicated -Luo catheter; not indicated -Nutrition; 2 g sodium diet -Nicotine dependence; not required CODE STATUS-FULL CODE ADMISSION STATUS-patient will be admitted to inpatient status, expect at least a 2 night hospital stay for evaluation and management of problems as outlined above. At the time of this admission I do not reasonably expected evaluation and management of this problem will require more than a 96 hour hospital stay. DISPOSITION-anticipate discharge to home after the hospital stay. PRIMARY CARE PROVIDER-[facility]
[2021-01-12] MEDS ORDERED: Lactated Ringers 1,000 ML IV SCH (11:15)
[2021-01-13] MEDS: Losartan 50 MG Tab PO SCH (08:13)
[2021-01-13] MEDS: amLODIPine 5 MG Tab PO SCH (08:14)
[2021-01-13] MEDS: Doxycycline 100 MG in Sodium Chloride 0.9% 100 ML IV SCH (08:15)
[2021-01-13] MEDS: Finasteride 5 MG Tab PO SCH (08:17)
--- NOTE | 2021-01-13 09:16 | PCM.DCSUM1 ---
Discharge Summary - Hospital Course Brief History: 65-year-old male with history of hypertension and stage III chronic kidney disease who presented with fever, myalgia and weakness. He was admitted for management of presumed anaplasmosis. Diagnosis: Stroke: No - Discharge Data Discharge Date: 01/13/21 Discharge Disposition: Home, Self-Care 01 Condition: Good - Referral to Home Health Primary Care Physician: Shalonda Suárez CUSTOMER ACCOUNT TECHNICIAN - Discharge Diagnosis/Problem(s) (1) Anaplasmosis SNOMED Code(s): 01352133 ICD Code: A77.49 - OTHER EHRLICHIOSIS Status: Acute (2) EDGADRO (acute kidney injury) SNOMED Code(s): 24295677, 15900255 ICD Code: N17.9 - ACUTE KIDNEY FAILURE, UNSPECIFIED Status: Acute Problem Details: Baseline of stage III chronic kidney disease (3) Hypokalemia SNOMED Code(s): 02907401 ICD Code: E87.6 - HYPOKALEMIA Status: Acute - Patient Summary/Data Labs Pending at D/C: Anaplasmosis titers Hospital Course: Jemal presented with fever, myalgia, headache and weakness as well as nausea and diarrhea. He was concerned he may have a Covid infection. Work-up in the emergency room revealed a low white blood cell count and low platelets as well as of mild elevation of his AST which was felt to be consistent with probable anaplasmosis since his Covid testing was negative. His creatinine was elevated at 2.3 with an unknown baseline. He was admitted to the hospital and started on IV fluids as well as IV doxycycline. Over the next couple of days his condition steadily improved. His symptoms have improved dramatically but not resolved. He continues to have some myalgias and weakness but is doing much better. He is tolerating a regular diet. Laboratory studies have been stable to improving. His kidney function has remained stable throughout the hospital stay. He feels well enough to go home at this time. His Lyme disease testing was negative and we are still waiting for his anaplasmosis testing. He will be on doxycycline for total of 21 days and will follow up as needed if he does not continue to improve. We did review potential side effects with the doxycycline including GI upset and increased skin sensitivity to the sun. - Patient Instructions Diet: Regular Diet as Tolerated Activity: As Tolerated Showering/Bathing: May Shower Other/Special Instructions: You were in the hospital for management of anaplasmosis. Your condition has been improving with IV fluid hydration and IV antibiotics. I do recommend additional antibiotic therapy after hospital discharge. Please take doxycycline 100 mg twice daily for 19 more days. Your first dose outside of the hospital will be due tonight. You should take this antibiotic with food to avoid stomach upset. This antibiotic can also make your skin more sensitive to the sunlight so you should use sunscreen or cover exposed skin with clothing while you are taking the antibiotic. You should follow-up if your symptoms do not continue to improve or if they start to get worse. - Discharge Plan *PRESCRIPTION DRUG MONITORING PROGRAM REVIEWED*: Not Applicable *COPY OF PRESCRIPTION DRUG MONITORING REPORT IN PATIENT DAVI: Not Applicable Prescriptions/Med Rec: Doxycycline Hyclate 100 mg PO BID #38 capsule Home Medications: Home Meds Chlorthalidone 0.5 tab PO DAILY 01/11/21 [History] Finasteride [Proscar] 1 tab PO DAILY 01/11/21 [History] Losartan [Cozaar] 1 tab PO DAILY 01/11/21 [History] Sildenafil Citrate [Viagra] 1 tab PO Q12HR PRN 01/11/21 [History] amLODIPine Besylate [Amlodipine Besylate] 1 tab PO DAILY 01/11/21 [History] Doxycycline Hyclate 100 mg PO BID #38 capsule 01/13/21 [Rx] Patient Handouts: Acute Kidney Injury, Adult, Ehrlichiosis and Anaplasmosis, [id number] Referrals: Shalonda Suárez, CUSTOMER ACCOUNT TECHNICIAN [Primary Care Provider] - (f/u as needed after the hospital stay ) - Discharge Summary/Plan Comment DC Time >30 min.: No - Patient Data Vitals - Most Recent: Last Vital Signs Temp 36.1 C 01/13/21 08:05 Pulse 77 01/13/21 08:05 Resp 16 01/13/21 08:05 BP 107/59 L 01/13/21 08:05 Pulse Ox 97 01/13/21 08:05 Weight - Most Recent: 72.575 kg I&O - Last 24 hours: Intake & Output 01/12/21 01/13/21 01/13/21 22:59 06:59 14:59 Intake Total 418 600 Output Total 300 250 Balance 118 350 Lab Results - Last 24 hrs: Laboratory Results - last 24 hr 01/13/21 01/13/21 Range/Units 05:30 05:30 WBC 4.3 L (4.5-11.0) K/uL RBC 4.19 L (4.30-5.90) M/uL Hgb 12.0 (12.0-15.0) g/dL Hct 34.7 L (40.0-54.0) % MCV 83 (80-98) fL MCH 29 (27-31) pg MCHC 35 (32-36) % Plt Count 48 L (150-400) K/uL Neut % (Auto) 23.8 L (36-66) % Lymph % (Auto) 36.2 (24-44) % [place] % (Auto) 30.2 H (2-6) % Eos % (Auto) 1.2 L (2-4) % Baso % (Auto) 8.6 H (0-1) % Sodium 137 L (140-148) mmol/L Potassium 4.0 (3.6-5.2) mmol/L Chloride 103 (100-108) mmol/L Carbon Dioxide 27 (21-32) mmol/L Anion Gap 11.0 (5.0-14.0) mmol/L BUN 49 H (7-18) mg/dL Creatinine 2.5 H (0.8-1.3) mg/dL Est Cr Clr Drug Dosing 29.43 mL/min Estimated GFR (MDRD) 26 L (>60) Glucose 106 (74-106) mg/dL Calcium 8.0 L (8.5-10.1) mg/dL Total Bilirubin 0.4 (0.2-1.0) mg/dL AST 61 H (15-37) U/L ALT 52 (12-78) U/L Alkaline Phosphatase 40 L (46-116) U/L Total Protein 5.1 L (6.4-8.2) g/dL Albumin 2.1 L (3.4-5.0) g/dL Globulin 3.0 (2.3-3.5) g/dL Albumin/Globulin Ratio 0.7 L (1.2-2.2) YO Results - Last 24 hrs: Microbiology 01/11/21 17:40 Aerobic Blood Culture - Preliminary Blood - Arm, Left NO GROWTH AFTER 1 DAY Anaerobic Blood Culture - Preliminary NO GROWTH AFTER 1 DAY 01/11/21 17:50 Aerobic Blood Culture - Preliminary Blood - Arm, Left NO GROWTH AFTER 1 DAY Anaerobic Blood Culture - Preliminary NO GROWTH AFTER 1 DAY Med Orders - Current: Current Medications Acetaminophen (Acetaminophen 325 Mg Tab) 650 mg PO Q4H PRN PRN Reason: Pain (Mild 1-3)/fever Last Admin: 01/13/21 08:14 Dose: 650 mg Documented by: Albuterol (Albuterol 0.083% 2.5 Mg/3 Ml Neb Soln) 2.5 mg NEB Q4H PRN PRN Reason: Shortness Of Breath/wheezing Amlodipine Besylate (Amlodipine 5 Mg Tab) 5 mg PO DAILY [facility] Last Admin: 01/13/21 08:14 Dose: Not Given Documented by: Diphenoxylate HCl/Atropine (Atropine/Diphenoxylate 0.025-2.5 Mg Tab) 1 tab PO QID PRN PRN Reason: Diarrhea Last Admin: 01/12/21 11:36 Dose: 1 tab Documented by: Finasteride (Finasteride 5 Mg Tab) 5 mg PO DAILY [facility] Last Admin: 01/13/21 08:17 Dose: 5 mg Documented by: Doxycycline Hyclate 100 mg/ (Sodium Chloride) 100 mls @ 100 mls/hr IV Q12H [facility] Last Admin: 01/13/21 08:15 Dose: 100 mls/hr Documented by: Lactated Ringer's (Ringers, Lactated) 1,000 mls @ 60 mls/hr IV ASDIRECTED [facility] Last Admin: 01/12/21 17:11 Dose: 60 mls/hr Documented by: Losartan Potassium (Losartan 50 Mg Tab) 100 mg PO DAILY [facility] Last Admin: 01/13/21 08:13 Dose: Not Given Documented by: Ondansetron HCl (Ondansetron 4 Mg/2 Ml Sdv) 4 mg IV Q4H PRN PRN Reason: Nausea/Vomiting Polyethylene Glycol (Polyethylene Glycol 3350 Powder 17 Gm Packet) 17 gm PO DAILY PRN PRN Reason: Constipation Sodium Chloride (Sodium Chloride 0.9% 10 Ml Syringe) 10 ml FLUSH ASDIRECTED PRN PRN Reason: Keep Vein Open Discontinued Medications Acetaminophen (Acetaminophen 500 Mg Tab) 1,000 mg PO ONETIME ONE Stop: 01/11/21 16:34 Last Admin: 01/11/21 16:51 Dose: 1,000 mg Documented by: Doxycycline Hyclate 100 mg/ (Sodium Chloride) 100 mls @ 100 mls/hr IV ONETIME ONE Stop: 01/11/21 18:33 Last Admin: 01/11/21 18:20 Dose: 100 mls/hr Documented by: Sodium Chloride (Normal Saline) 1,000 mls @ 999 mls/hr IV .BOLUS ONE Stop: 01/11/21 18:35 Last Admin: 01/11/21 18:19 Dose: 999 mls/hr Documented by: Lactated Ringer's (Ringers, Lactated) 1,000 mls @ 999 mls/hr IV ASDIRECTED [facility] Stop: 01/11/21 19:36 Last Admin: 01/11/21 20:28 Dose: 999 mls/hr Documented by: Lactated Ringer's (Ringers, Lactated) 1,000 mls @ 125 mls/hr IV ASDIRECTED [facility] Last Admin: 01/12/21 05:05 Dose: 125 mls/hr Documented by: Ibuprofen (Ibuprofen 800 Mg Tab) 800 mg PO ONETIME ONE Stop: 01/11/21 16:34 Last Admin: 01/11/21 16:51 Dose: 800 mg Documented by: Ondansetron HCl (Ondansetron 4 Mg Tab.Dis) 4 mg PO ONETIME ONE Stop: 01/11/21 16:34 Last Admin: 01/11/21 16:51 Dose: 4 mg Documented by: Potassium Chloride (Potassium Chloride 20 Meq Tab.Er) 40 meq PO ONETIME ONE Stop: 01/11/21 18:07 Last Admin: 01/11/21 19:34 Dose: 40 meq Documented by: Potassium Chloride (Potassium Chloride 20 Meq Tab.Er) 40 meq PO ONETIME ONE Stop: 01/11/21 22:01 Last Admin: 01/11/21 22:45 Dose: 40 meq Documented by: Potassium Chloride (Potassium Chloride 20 Meq Tab.Er) 40 meq PO ONETIME ONE Stop: 01/12/21 08:16 Last Admin: 01/12/21 08:11 Dose: 40 meq Documented by: Potassium Chloride (Potassium Chloride 20 Meq Tab.Er) 40 meq PO ONETIME ONE Stop: 01/12/21 17:01 Last Admin: 01/12/21 17:13 Dose: 40 meq Documented by: Sodium Chloride (Sodium Chloride 0.9% 10 Ml Syringe) 10 ml FLUSH ASDIRECTED PRN PRN Reason: Keep Vein Open *Q Meaningful Use (DIS) - VTE *Q VTE Pharmacological Contraindications *Q: Thrombocytopenia
--- NOTE | 2021-01-13 09:36 | CR ---
CHEST: 2 view CLINICAL HISTORY:Cough COMPARISON:None FINDINGS: The heart size, pulmonary vascularity and hilar structures are normal. No infiltrate effusion or pneumothorax is seen. There are atherosclerotic changes in the aorta. IMPRESSION: No acute cardiopulmonary process.
[2021-01-15 14:11] LABS: HGE IGG TITER Negative (Neg:<1:64); HGE IGM TITER Negative (Neg:<1:20)
== END 2021-01-13 10:15 | disposition home or self-care (01) | DRG 872 ==
LOC: JP.ED 14:57 → JP.MS 18:07
PROVIDERS: ADMIT Hospitalist; ATTEND Internal Medicine
DX: A41.9 Sepsis, unspecified organism (principal); A77.49 Other ehrlichiosis; I10 Essential (primary) hypertension; N17.9 Acute kidney failure, unspecified; N18.30 Chronic kidney disease, stage 3 unspecified; E87.6 Hypokalemia; I12.9 Hypertensive chronic kidney disease with stage 1 through stage 4 chronic kidney disease, or unspecified chronic kidney disease; Z20.822 Contact with and (suspected) exposure to COVID-19; Z79.899 Other long term (current) drug therapy; Z88.8 Allergy status to other drugs, medicaments and biological substances
CPT/HCPCS: 36415; 71046 ×2; 80053; 83605; 85025; 87040 ×2; 87635; A9270 ×3; 83735; 86618; 86666; 99285-25; J3490; J7030; J7120; U0002

== ENCOUNTER 2021-01-14 11:51 | Emergency (ER) | payer OTHER, MEDICARE ==
--- NOTE | 2021-01-14 13:09 | EDM.PDOC ---
ED HPI GENERAL MEDICAL PROBLEM - General Chief Complaint: General Stated Complaint: WORN OUT, TIRED, CAN'T EAT Time Seen by Provider: 01/14/21 12:40 Source of Information: Reports: Patient, Family History Limitations: Reports: No Limitations - History of Present Illness INITIAL COMMENTS - FREE TEXT/NARRATIVE: 65-year-old male who was just discharged from the hospital yesterday after being treated for his first 2 days with IV antibiotics for anaplasmosis, returns with weakness, slight dysarthria and unable to eat anything. His daughter talked her on the phone and was afraid he was having a stroke so he was sent in for evaluation. Onset: Gradual (Has been ill for several days, actually says he does not feel a lot different than when he was discharged from the hospital) Quality: Reports: Pressure (Mild pressure in his head, persistent headache) Associated Symptoms: Reports: Confusion (Slight confusion), Malaise, Weakness, Other (Marked decrease in appetite) - Related Data Allergies Allergy/AdvReac Type Severity Reaction Status Date / Time lisinopril AdvReac Cough Verified 01/14/21 12:28 Home Meds: Home Meds Chlorthalidone 0.5 tab PO DAILY 01/11/21 [History] Finasteride [Proscar] 1 tab PO DAILY 01/11/21 [History] Losartan [Cozaar] 1 tab PO DAILY 01/11/21 [History] Sildenafil Citrate [Viagra] 1 tab PO Q12HR PRN 01/11/21 [History] amLODIPine Besylate [Amlodipine Besylate] 1 tab PO DAILY 01/11/21 [History] Doxycycline Hyclate 100 mg PO BID #38 capsule 01/13/21 [Rx] Past Medical History Cardiovascular History: Reports: Hypertension Genitourinary History: Reports: Prostate Disorder - Infectious Disease History Infectious Disease History: Reports: Chicken Pox - Past Surgical History Male Surgical History: Reports: Prostate Biopsy Social & Family History - Tobacco Use Tobacco Use Status *Q: Former Tobacco User Years of Tobacco use: 4 Used Tobacco, but Quit: Yes Month/Year Tobacco Last Used: - Caffeine Use Caffeine Use: Reports: None - Recreational Drug Use Recreational Drug Use: No ED ROS GENERAL - Review of Systems Review Of Systems: See Below Constitutional: Reports: Malaise, Decreased Appetite. Denies: Fever, Chills HEENT: Denies: Vision Change Respiratory: Denies: Shortness of Breath Cardiovascular: Denies: Chest Pain GI/Abdominal: Reports: Decreased Appetite, Nausea (When eating). Denies: Abdominal Pain, Vomiting Musculoskeletal: Reports: Other (Generalized muscle soreness but mild) Skin: Reports: Other (No jaundice). Denies: Erythema Neurological: Reports: Headache (Mild persistent headache), Weakness (Generalized weakness), Other (Slight confusion and dysarthria earlier, that seems to have improved) Psychiatric: Reports: No Symptoms ED EXAM, GENERAL - Physical Exam Exam: See Below Exam Limited By: No Limitations General Appearance: Alert, No Apparent Distress, Other (Patient looks tired but neurologically intact, his speech is clear and interaction is normal) Eye Exam: Bilateral Eye: Other (Mild conjunctival erythema bilaterally, otherwise normal) Head: Atraumatic Neck: Supple, Non-Tender Respiratory/Chest: Lungs Clear Cardiovascular: Regular Rate, Rhythm. No: Tachycardia GI/Abdominal: Normal Bowel Sounds, Soft, Non-Tender Extremities: Normal Inspection Neurological: Alert, Oriented, No Motor/Sensory Deficits Psychiatric: Flat Affect Skin Exam: Warm, Dry Course - Vital Signs Last Recorded V/S: Last Vital Signs Temp 97.4 F 01/14/21 12:43 Pulse 50 L 01/14/21 12:56 Resp 16 01/14/21 12:43 BP 126/79 01/14/21 12:56 Pulse Ox 98 01/14/21 12:56 - Re-Assessments/Exams Free Text/Narrative Re-Assessment/Exam: 01/15/21 07:46 Labs were not repeated, as patient has only had 1 day of oral antibiotics, is afebrile and vitals are normal and his neurologic exam is generally normal as well. They just wanted reassurance that he had not had a "stroke "or something more serious, he was discharged with some oral Zofran to take as needed to suppress nausea and try to increase diet and activity as tolerated. He can return anytime if symptoms are worsening. Departure - Departure Time of Disposition: 13:38 Disposition: Home, Self-Care 01 Clinical Impression: Weakness, Anaplasmosis - Discharge Information Instructions: Ehrlichiosis and Anaplasmosis Referrals: PCP,None [Primary Care Provider] - Forms: ED Department Discharge Care Plan Goals: Continue current treatment, use Zofran under your tongue for nausea and try to increase oral intake. Advance activity as tolerated and return anytime if you feel you need further evaluation. Sepsis Event Note (ED) - Evaluation Sepsis Screening Result: No Definite Risk
== END 2021-01-14 13:37 | disposition home or self-care (01) ==
LOC: JP.ED 11:51
DX: R53.1 Weakness (principal); A77.49 Other ehrlichiosis; I10 Essential (primary) hypertension; Z88.8 Allergy status to other drugs, medicaments and biological substances; Z87.891 Personal history of nicotine dependence
CPT/HCPCS: 99284

== ENCOUNTER 2024-10-21 16:35 | Emergency (ER) | payer OTHER, MEDICARE | END 2024-10-21 18:05 | disposition home or self-care (01) | LOC: JP.ED 16:35 | DX: L01.00 Impetigo, unspecified (principal); I10 Essential (primary) hypertension; Z88.8 Allergy status to other drugs, medicaments and biological substances; Z79.899 Other long term (current) drug therapy | CPT/HCPCS: 99282 ==